=== PATIENT | male | born 1985 | race Caucasian/White ===

== ENCOUNTER 2022-05-28 21:33 | Emergency (ER) | payer OTHER ==
[2022-05-28] MEDS ORDERED: METHOCARBAMOL 500 MG TABLET PO ONE (21:54)
[2022-05-28] MEDS ORDERED: IBUPROFEN 600 MG TABLET (FP) PO ONE ×2 (21:54→22:03)
[2022-05-28 21:56] VITALS: BP 130/74; PULSE 78; RESP 17; TEMP 98.4; BMI 27.3
[2022-05-28] MEDS ORDERED: LIDOCAINE PATCH REMOVAL MC SCH (22:00)
[2022-05-28] MEDS ORDERED: LIDOCAINE 5% TOPICAL PATCH TP ONE (22:02)
[2022-05-28] MEDS ORDERED: LIDOCAINE 5% TOPICAL PATCH ONE (22:04)
[2022-05-28] MEDS ORDERED: METHOCARBAMOL 500 MG TABLET ONE (22:04)
== END 2022-05-28 22:06 | disposition home or self-care (01) ==
LOC: FER 21:33
DX: S24.109A Unspecified injury at unspecified level of thoracic spinal cord, initial encounter (principal); S63.637A Sprain of interphalangeal joint of left little finger, initial encounter; S76.311A Strain of muscle, fascia and tendon of the posterior muscle group at thigh level, right thigh, initial encounter; Y99.8 Other external cause status
CPT/HCPCS: 99283-25

== ENCOUNTER 2022-12-08 21:34 | Emergency (ER) | payer OTHER ==
[2022-12-08 21:46] VITALS: BP 124/76; PULSE 93; RESP 16; TEMP 98.9; BMI 27.3
[2022-12-08] MEDS ORDERED: IBUPROFEN 400 MG TABLET (FP) PO ONE ×2 (21:52→21:55)
== END 2022-12-08 22:00 | disposition home or self-care (01) ==
LOC: FER 21:34
DX: S76.311A Strain of muscle, fascia and tendon of the posterior muscle group at thigh level, right thigh, initial encounter (principal); W19.XXXA Unspecified fall, initial encounter
CPT/HCPCS: 99283-25

== ENCOUNTER 2022-12-24 02:03 | Emergency (ER) | payer OTHER ==
[2022-12-24 02:41] VITALS: BP 120/80; PULSE 62; RESP 18; TEMP 98.1; BMI 29.5
[2022-12-24] MEDS ORDERED: HIV POST EXPOSURE PROPHYLAXIS KIT NR ONE (03:26)
[2022-12-24 04:12] LABS: BASO % 0.7 % (0-2.0); EOS % 2.3 % (0-4.5); HEMATOCRIT 41.3 % (35.4-49); HEMOGLOBIN 14.3 GM/dL (11.7-16.9); LYMPH % 26.3 % (8-40); MCHC 34.7 g/dl (32.0-35.9); MEAN CELL VOLUME 86.5 fl (80-96); MEAN PLT VOLUME 8.5 fl (7.5-11.1); MONO % 9.9 % (3.8-10.2); NEUT % 60.8 % (42.8-82.8); PLATELET COUNT 206 10^3/uL (134-434); RBC 4.77 M/mm3 (4.00-5.60); RDW 14.1 % (11.9-15.9)
[2022-12-24 04:50] LABS: ALBUMIN 4.2 g/dl (3.4-5.0); BLOOD UREA NITROGEN 16.7 mg/dL (7-18)
[2022-12-24 04:53] LABS: CREATININE 1.2 mg/dL (0.55-1.3)
[2022-12-24 04:55] LABS: TOT PROT 7.8 g/dl (6.4-8.2)
[2022-12-24 07:45] LABS: BILIRUBIN,TOTAL 0.5 mg/dL (0.2-1); CALCIUM 9.5 mg/dL (8.5-10.1)
[2022-12-24 12:09] LABS: HIV INTERPRETATION NEGATIVE (NEGATIVE)
== END 2022-12-24 05:13 | disposition home or self-care (01) ==
LOC: JER 02:03
DX: B19.10 Unspecified viral hepatitis B without hepatic coma (principal); Z77.21 Contact with and (suspected) exposure to potentially hazardous body fluids
CPT/HCPCS: 36415; 80053; 85025; 86705; 87389; 87517; 87522; 99283-25

== ENCOUNTER 2023-03-14 18:29 | Emergency (ER) | payer OTHER ==
[2023-03-14 19:01] VITALS: BP 134/91; PULSE 75; RESP 18; TEMP 98.7; BMI 28.0
[2023-03-14] MEDS ORDERED: IBUPROFEN 400 MG TABLET (FP) PO ONE ×2 (19:29→19:41)
== END 2023-03-14 19:54 | disposition home or self-care (01) ==
LOC: FER 18:29
DX: S76.311A Strain of muscle, fascia and tendon of the posterior muscle group at thigh level, right thigh, initial encounter (principal); S39.012A Strain of muscle, fascia and tendon of lower back, initial encounter; M76.71 Peroneal tendinitis, right leg; Y35.811A Legal intervention involving manhandling, law enforcement official injured, initial encounter
CPT/HCPCS: 99283-25

== ENCOUNTER 2023-12-08 23:28 | Emergency (ER) | payer OTHER ==
[2023-12-08 23:48] VITALS: BP 126/83; PULSE 85; RESP 18; TEMP 99; BMI 28.0
[2023-12-09] MEDS ORDERED: IBUPROFEN 600 MG TABLET (FP) PO ONE
[2023-12-09] MEDS: IBUPROFEN 600 MG TABLET (FP) PO ONE (00:10)
== END 2023-12-09 00:40 | disposition home or self-care (01) ==
LOC: FER 23:28
DX: S39.012A Strain of muscle, fascia and tendon of lower back, initial encounter (principal); S16.1XXA Strain of muscle, fascia and tendon at neck level, initial encounter; M79.645 Pain in left finger(s); V49.40XA Driver injured in collision with unspecified motor vehicles in traffic accident, initial encounter; Y35.91XA Legal intervention, means unspecified, law enforcement official injured, initial encounter
CPT/HCPCS: 99283-25